=== PATIENT | male | born 1970 | race Caucasian/White ===

== ENCOUNTER 2020-04-12 17:38 | Outpatient (REF) | payer SELFPAY | END 2020-04-12 17:39 | disposition home or self-care (01) | LOC: HO.BBR 17:38 | PROVIDERS: PCP Pediatrics; Visit Provider Internal Medicine | DX: E83.110 Hereditary hemochromatosis (principal) | CPT/HCPCS: 99195 ==

== ENCOUNTER 2020-06-18 15:38 | Outpatient (REF) | payer SELFPAY | END 2020-06-18 15:39 | disposition home or self-care (01) | LOC: HO.BBR 15:38 | PROVIDERS: Visit Provider Internal Medicine | DX: Z13.89 Encounter for screening for other disorder (principal) ==

== ENCOUNTER 2020-06-18 16:20 | Outpatient (REF) | payer SELFPAY ==
[2020-06-18 17:32] LABS: Cholesterol 197 mg/dL
== END 2020-06-18 16:21 | disposition home or self-care (01) ==
LOC: HO.LNC 16:20
PROVIDERS: Visit Provider Pathology Anatomic Pathology & Clinical Pathology
DX: Z13.89 Encounter for screening for other disorder (principal)
CPT/HCPCS: 36415; 82465

== ENCOUNTER 2020-08-22 15:32 | Outpatient (REF) | payer SELFPAY | END 2020-08-22 15:33 | disposition home or self-care (01) | LOC: HO.BBR 15:32 | PROVIDERS: Visit Provider Internal Medicine | DX: Z13.89 Encounter for screening for other disorder (principal) ==